=== PATIENT | female | born 2000 | race Caucasian/White ===

== ENCOUNTER 2018-09-07 12:10 | Inpatient (IN) | payer MEDICAID ==
[2018-09-07] MEDS: LACTATED RINGER'S 1,000 ML IV ×2 (14:26→15:21)
[2018-09-07] MEDS ORDERED: LIDOCAINE 1% (MPF) 30 ML INJ INJ (19:00)
[2018-09-07] MEDS ORDERED: IBUPROFEN 600 MG TAB PO (19:00)
[2018-09-07] MEDS ORDERED: METHYLERGONOVINE 0.2 MG INJ IM (19:00)
[2018-09-07] MEDS ORDERED: CARBOPROST 250 MCG INJ IM (19:00)
[2018-09-07] MEDS ORDERED: MISOPROSTOL 200 MCG TAB PR (19:00)
[2018-09-07] MEDS ORDERED: OXYCODONE/ACETAMINOPHEN (5/325) TAB PO (19:00)
[2018-09-07] MEDS ORDERED: OXYTOCIN 30 UNITS/LR 500 ML IV ×2 (19:00)
[2018-09-07 19:25] LABS: ADD MAN DIFF? NO
[2018-09-07 19:27] LABS: BASOPHILS % 0.2 % (0.0-2.0); EOSINOPHILS % 0.4 % (0.0-7.0); HEMATOCRIT 37.8 % (37.0-47.0); HEMOGLOBIN 12.9 g/dl (12.0-16.0); LYMPHOCYTES # 1.7 10^3/ul (0.8-2.9); LYMPHOCYTES % 21.1 % (18.0-55.0); MEAN CORPUSCULAR HEMOGLOBIN 35.1 pg (29.0-33.0); MEAN CORPUSCULAR HGB CONC 34.1 g/dl (32.0-37.0); MEAN CORPUSCULAR VOLUME 102.7 fl (72.0-104.0); MEAN PLATELET VOLUME 9.8 fl (7.4-10.4); MONOCYTE # 0.5 10^3/ul (0.3-0.9); MONOCYTES % 5.8 % (0.0-13.0); NEUTROPHIL # 5.8 10^3/ul (1.6-7.5); NEUTROPHILS % 71.9 % (30.0-74.0); PLATELET COUNT 148 10^3/UL (140-415); RED BLOOD COUNT 3.68 10^6/ul (4.20-5.40)
[2018-09-07 19:27] LABS: WHITE BLOOD COUNT 8.1 10^3/ul (4.8-10.8)
[2018-09-07 19:47] LABS: INR 0.85; PROTIME 11.7 Sec (11.9-14.9); PT RATIO 0.9
[2018-09-07 19:48] LABS: PARTIAL THROMBOPLASTIN TIME 26.9 Sec (23.0-35.0)
[2018-09-07 20:47] LABS: HEPATITIS B SURFACE ANTIGEN NEGATIVE (NEGATIVE)
[2018-09-08] MEDS: LACTATED RINGER'S 1,000 ML IV ×5 (01:30→14:52)
[2018-09-08] MEDS: AZITHROMYCIN 500MG/NS (PMX) 250 ML IVPB (07:53)
[2018-09-08] MEDS ORDERED: ONDANSETRON 4 MG INJ (08:06)
[2018-09-08] MEDS ORDERED: morphine SULFATE/PF (10 MG/10 ML) INJ (08:19)
[2018-09-08] MEDS ORDERED: METOCLOPRAMIDE 10 MG INJ (08:30)
[2018-09-08] MEDS ORDERED: MIDAZOLAM 1 MG/ML 2 ML INJ (08:52)
[2018-09-08] MEDS ORDERED: MEPERIDINE 25 MG INJ IV (09:00)
[2018-09-08] MEDS ORDERED: HYDROmorphONE 0.5 MG/0.5 ML SYG IV ×2 (09:00)
[2018-09-08] MEDS ORDERED: DIPHENHYDRAMINE 50 MG INJ IV (09:00)
[2018-09-08] MEDS ORDERED: NALBUPHINE HCL (10 MG/1 ML) INJ IV (09:00)
[2018-09-08] MEDS ORDERED: MIDAZOLAM 1 MG/ML 2 ML INJ IV (09:00)
[2018-09-08] MEDS ORDERED: ZOLPIDEM 5 MG TAB PO (09:00)
[2018-09-08] MEDS ORDERED: NALOXONE (0.4 MG/ML) INJ IV (09:00)
[2018-09-08] MEDS ORDERED: ONDANSETRON 4 MG INJ IV (09:00)
[2018-09-08] MEDS ORDERED: EPHEDrine 25 MG/5 ML SYG IV (09:00)
[2018-09-08] MEDS: CEFAZOLIN 2 GM/50 ML (PMX) 50 ML IVPB (09:23)
[2018-09-08] MEDS ORDERED: EPHEDrine SULFATE 50 MG/5 ML SYG (09:50)
[2018-09-08] MEDS ORDERED: OXYTOCIN 30 UNITS/LR 1,000 ML IV (09:50)
[2018-09-08] MEDS ORDERED: PHENYLephrine 10 MG INJ (09:50)
[2018-09-08] MEDS ORDERED: METHYLERGONOVINE 0.2 MG INJ IM (10:00)
[2018-09-08] MEDS ORDERED: OXYTOCIN 30 UNITS/LR 500 ML IV (10:00)
[2018-09-08] MEDS ORDERED: CARBOPROST 250 MCG INJ IM (10:00)
[2018-09-08] MEDS ORDERED: NACL 0.9% 3 ML SYG IV (10:00)
[2018-09-08] MEDS ORDERED: MISOPROSTOL 200 MCG TAB PR (10:00)
[2018-09-08] MEDS: OXYTOCIN 30 UNITS/LR 500 ML IV ×2 (10:29→14:20)
[2018-09-08 11:07] LABS: ADD UMIC YES; UR ASCORBIC ACID NEGATIVE (NEGATIVE); UR BILIRUBIN (Dip) NEGATIVE (NEGATIVE); UR BLOOD (Dip) 1+ mg/dL (NEGATIVE); UR CLARITY CLEAR (CLEAR); UR COLOR STRAW (YELLOW); UR GLUCOSE (Dip) NEGATIVE (NEGATIVE); UR KETONES (Dip) TRACE mg/dL (NEGATIVE); UR LEUKOCYTE ESTERASE (Dip) NEGATIVE Leu/ul (NEGATIVE); UR NITRITE (Dip) NEGATIVE (NEGATIVE); UR RBC 7 /HPF (0-5); UR TOTAL PROTEIN (Dip) NEGATIVE (NEGATIVE); UR UROBILINOGEN (Dip) NEGATIVE (NEGATIVE); UR WBC 2 /HPF (0-5)
[2018-09-08] MEDS: KETOROLAC 30 MG INJ IV (12:16)
[2018-09-08] MEDS: DIPHENHYDRAMINE 50 MG INJ IV (14:18)
[2018-09-08 14:52] LABS: RAPID PLASMA REAGIN NONREACTIVE (NR)
[2018-09-09] MEDS: LACTATED RINGER'S 1,000 ML IV ×2 (00:18→05:00)
[2018-09-09 08:35] LABS: ADD MAN DIFF? NO
[2018-09-09 08:48] LABS: BASOPHILS % 0.3 % (0.0-2.0); EOSINOPHILS % 0.2 % (0.0-7.0); HEMATOCRIT 31.6 % (37.0-47.0); HEMOGLOBIN 10.9 g/dl (12.0-16.0); MEAN CORPUSCULAR HEMOGLOBIN 34.9 pg (29.0-33.0); MEAN CORPUSCULAR HGB CONC 34.5 g/dl (32.0-37.0); MEAN CORPUSCULAR VOLUME 101.3 fl (72.0-104.0); MEAN PLATELET VOLUME 9.8 fl (7.4-10.4); MONOCYTE # 0.6 10^3/ul (0.3-0.9); MONOCYTES % 7.4 % (0.0-13.0); NEUTROPHILS % 80.6 % (30.0-74.0); PLATELET COUNT 131 10^3/UL (140-415); RED BLOOD COUNT 3.12 10^6/ul (4.20-5.40); RED CELL DISTRIBUTION WIDTH 13.2 % (11.5-14.5)
[2018-09-09 08:48] LABS: WHITE BLOOD COUNT 8.7 10^3/ul (4.8-10.8)
[2018-09-09] MEDS: OXYCODONE/ACETAMINOPHEN (5/325) TAB PO (11:03)
[2018-09-09] MEDS: IBUPROFEN 600 MG TAB PO ×3 (11:45→23:48)
[2018-09-10] MEDS: IBUPROFEN 600 MG TAB PO ×3 (05:29→13:21)
[2018-09-10] MEDS: OXYCODONE/ACETAMINOPHEN (5/325) TAB PO (19:16)
[2018-09-11] MEDS: IBUPROFEN 600 MG TAB PO ×3 (00:28→13:24)
== END 2018-09-11 17:30 | disposition home or self-care (01) | DRG 787 ==
LOC: OBT 12:10 → L-D 09-08 07:57 → OBT 17:00 → L-D 09-08 09:59 → PP1 09-08 12:58 → L-D 19:14
PROVIDERS: Obstetrics & Gynecology
PROC: 10D00Z1 Extraction of Products of Conception, Low, Open Approach (ICD-10-PCS; principal; 2018-09-08)
DX: O36.5930 Maternal care for other known or suspected poor fetal growth, third trimester, not applicable or unspecified (principal); D62 Acute posthemorrhagic anemia; O90.81 Anemia of the puerperium; Z3A.38 38 weeks gestation of pregnancy; Z37.0 Single live birth
CPT/HCPCS: 76818; 76820; 81001; 85025; 85610; 85730; 86592; 86850; 86900; 86901; 87340; 88307; 99464